=== PATIENT | male | born 1960 | race Caucasian/White ===

== ENCOUNTER 2016-07-14 14:22 | Emergency (ER) | payer BC ==
[2016-07-14 15:54] VITALS: BP 140/60
--- NOTE | 2016-07-14 16:01 | UC ---
FLU HPI - HPI Summary HPI Summary: pt presents with sudden onset of cough, malaise, fever, chills, and sore throat. Pt reports having "coughing fits" yesterday and woke this morning with sore throat, fever, malaise and myalgia today. Pt did not get flu vaccine this year. - History of Current Complaint Chief Complaint: UCGeneralIllness Stated Complaint: FLU LIKE Time Seen by Provider: 07/14/16 15:40 Hx Obtained From: Patient Onset/Duration: Sudden Onset, Lasting Days Severity Currently: Moderate Severity Initially: Mild Associated Signs & Symptoms: Positive: Fever, Myalgia, Cough, Sore Throat, Nasal Congestion - Allergy/Home Medications Allergies/Adverse Reactions: Allergies Allergy/AdvReac Type Severity Reaction Status Date / Time Cephalexin [From Keflex] Allergy Severe FACIAL Verified 07/14/16 15:43 SWELLING, SHANTELL SWELLING Penicillins Allergy Intermediate Hives Verified 07/14/16 15:43 Home Medications: Home Medications Lisinopril TAB* [Prinivil TAB*] 10 mg PO DAILY 07/14/16 [History Confirmed 07/14] Metoprolol Succinate [Toprol Xl] 25 mg PO DAILY 07/14/16 [History Confirmed ] Rosuvastatin Calcium [Crestor] 5 mg PO EVERY OTHER DAY 07/14/16 [History Confirmed 07/14/16] PMH/Surg Hx/FS Hx/Imm Hx Previously Healthy: No - see PMH Endocrine History Of: Reports: Diabetes Cardiovascular History Of: Reports: Cardiac Disorders - 4 STENTS Denies: Hypertension - Surgical History Surgical History: Yes Surgery Procedure, Year, and Place: STENT PLACEMENT--2008. 5 MORE STENTS PLACED --2017 - Family History Known Family History: Positive: Other - positive [facility] for URI - Social History Alcohol Use: Occasionally Substance Use Type: None Smoking Status (MU): Light Every Day Tobacco Smoker Type: Cigarettes Amount Used/How Often: 1/2 PPD Length of Time of Smoking/Using Tobacco: 45 YRS Have You Smoked in the Last Year: Yes Household Exposure Type: Cigarettes - Immunization History Most Recent Influenza Vaccination: NOT THIS SEASON Most Recent Tetanus Shot: 12 YRS AGO Review of Systems Constitutional: Fever, Chills, Fatigue Skin: Negative Eyes: Negative ENT: Sore Throat Respiratory: Cough Cardiovascular: Negative Gastrointestinal: Negative Genitourinary: Negative Motor: Negative Neurovascular: Negative Musculoskeletal: Myalgia Neurological: Negative Psychological: Negative All Other Systems Reviewed And Are Negative: Yes Physical Exam Triage Information Reviewed: Yes Appearance: Ill-Appearing Vital Signs: Initial Vital Signs Temp 101.7 F 07/14/16 15:36 Pulse 101 07/14/16 15:36 Resp 18 07/14/16 15:36 BP 140/60 07/14/16 15:36 Pulse Ox 96 07/14/16 15:36 Eye Exam: Normal ENT Exam: Other ENT: Positive: Nasal congestion Neck exam: Normal Respiratory Exam: Normal Cardiovascular Exam: Normal Musculoskeletal Exam: Normal Neurological Exam: Normal Psychological Exam: Normal Skin Exam: Other - very warm to touch Flu Course/Dx - Course Course Of Treatment: Influenza tests were negative. I discussed with the patient to conintue to monitor symptoms and follwo up with his PCP or return to clinic if his symptoms did not improve over the next 24-72 hours. Pt verbalized understanding and agreed to plan of care. - Differential Dx/Diagnosis Differential Diagnosis/HQI/PQRI: Bronchitis, Influenza Provider Diagnoses: viral syndrome Discharge - Discharge Plan Condition: Stable Disposition: HOME Patient Education Materials: Viral Syndrome (ED) Referrals: Norm Andrade DO [Primary Care Provider] - 1 Day (Please follow up with your PCP or return to clinic as needed. ) Additional Instructions: It is noted that your blood pressure is elevated at todays visit. Please follow up with your PCP regarding this as soon as possible.
[2016-07-14] MEDS ORDERED: Acetaminophen TAB* 325 MG PO ONE (16:18)
== END 2016-07-14 16:40 | disposition home or self-care (01) ==
LOC: UCCORT 14:22
DX: B34.9 Viral infection, unspecified (principal); Z95.5 Presence of coronary angioplasty implant and graft; Z88.1 Allergy status to other antibiotic agents; Z88.0 Allergy status to penicillin; F17.210 Nicotine dependence, cigarettes, uncomplicated
CPT/HCPCS: 87502; 99212; A9270-GY; G0463

== ENCOUNTER 2016-07-23 18:11 | Emergency (ER) | payer BC ==
[2016-07-23 18:55] VITALS: BP 136/71
--- NOTE | 2016-07-23 19:19 | UC ---
Throat Pain/Nasal Bang HPI - HPI Summary HPI Summary: Seen here 07/14/16 for fever, congestion, cough, flu-like illness. As those symptoms improved through the week, pt developed marked pain in face and L ear/ jaw. Feels it is mainly in his sinuses. Denies new fever or trouble breathing. Also is prone to swimmer's ear, concerned about this. - History of Current Complaint Chief Complaint: UCGeneralIllness Stated Complaint: SINUS Time Seen by Provider: 07/23/16 19:02 Hx Obtained From: Patient Onset/Duration: Gradual Onset, Lasting Days Severity: Moderate Cough: Productive Associated Signs & Symptoms: Negative: Fever - no new fevers - Allergies/Home Medications Allergies/Adverse Reactions: Allergies Allergy/AdvReac Type Severity Reaction Status Date / Time Cephalexin [From Keflex] Allergy Severe FACIAL Verified 07/23/16 18:54 SWELLING, SHANTELL SWELLING Penicillins Allergy Intermediate Hives Verified 07/23/16 18:54 Home Medications: Home Medications Acetaminophen TAB* [Tylenol TAB*] 650 mg PO Q4H PRN 07/23/16 [History Confirmed 07/23/16] PMH/Surg Hx/FS Hx/Imm Hx Endocrine History Of: Reports: Diabetes Cardiovascular History Of: Reports: Cardiac Disorders - 4 STENTS Denies: Hypertension - Surgical History Surgical History: Yes Surgery Procedure, Year, and Place: STENT PLACEMENT - Family History Known Family History: Positive: Other - positive [facility] for URI - Social History Lives: With Family Alcohol Use: Occasionally Substance Use Type: None Smoking Status (MU): Light Every Day Tobacco Smoker Type: Cigarettes Amount Used/How Often: 1/2 PPD Length of Time of Smoking/Using Tobacco: 45 YRS Have You Smoked in the Last Year: Yes Household Exposure Type: Cigarettes - Immunization History Most Recent Influenza Vaccination: NOT THIS SEASON Most Recent Tetanus Shot: 12 YRS AGO Review of Systems Constitutional: Negative Skin: Negative Eyes: Negative ENT: Nasal Discharge Respiratory: Cough Cardiovascular: Negative Gastrointestinal: Negative Genitourinary: Negative Motor: Negative Neurovascular: Negative Musculoskeletal: Negative Neurological: Negative Psychological: Negative All Other Systems Reviewed And Are Negative: Yes Physical Exam Triage Information Reviewed: Yes Appearance: Well-Appearing, No Pain Distress, Well-Nourished Vital Signs: Initial Vital Signs Temp 98.2 F 07/23/16 18:51 Pulse 94 07/23/16 18:51 Resp 16 07/23/16 18:51 BP 136/71 07/23/16 18:51 Pulse Ox 99 07/23/16 18:51 Vital Signs Reviewed: Yes Eye Exam: Normal Eyes: Positive: Conjunctiva Clear ENT: Positive: Hearing grossly normal, Pharynx normal, Nasal congestion, TMs normal. Negative: Tonsillar swelling, Tonsillar exudate Dental Exam: Normal Neck exam: Normal Neck: Positive: Supple, Nontender, No Lymphadenopathy Respiratory Exam: Normal Respiratory: Positive: Chest non-tender, Lungs clear, Normal breath sounds, No respiratory distress, No accessory muscle use Cardiovascular Exam: Normal Cardiovascular: Positive: RRR, No Murmur Musculoskeletal Exam: Normal Neurological Exam: Normal Neurological: Positive: Alert Psychological Exam: Normal Skin Exam: Normal Throat Pain/Nasal Course/Dx - Differential Dx/Diagnosis Provider Diagnoses: acute rhinosinusitis Discharge - Discharge Plan Condition: Stable Disposition: HOME Prescriptions: DOXYcycline CAP(*) [DOXYcycline 100MG CAP(*)] 100 mg PO BID #14 cap Patient Education Materials: Rhinosinusitis (ED) Referrals: Norm Andrade DO [Primary Care Provider] - Additional Instructions: Keep using steam and saline. If you have any significant worsening, or if you fail to improve after 4 days, please return here or see your primary care provider.
== END 2016-07-23 19:22 | disposition home or self-care (01) ==
LOC: UCCORT 18:11
DX: J01.90 Acute sinusitis, unspecified (principal); Z88.1 Allergy status to other antibiotic agents; Z88.0 Allergy status to penicillin; E11.9 Type 2 diabetes mellitus without complications; F17.210 Nicotine dependence, cigarettes, uncomplicated
CPT/HCPCS: 99212; G0463

== ENCOUNTER 2017-04-22 15:11 | Emergency (ER) | payer BC ==
--- NOTE | 2017-04-22 15:40 | UC ---
Throat Pain/Nasal Bang HPI - HPI Summary HPI Summary: 56 year old male presents with complains of sinus congestion. - History of Current Complaint Stated Complaint: SINUSES Time Seen by Provider: 04/22/17 15:39 Hx Obtained From: Patient Onset/Duration: Sudden Onset, Lasting Days Severity: Moderate Pain Scale Used: 0-10 Numeric - 5 Cough: Nonproductive Associated Signs & Symptoms: Positive: Negative - Allergies/Home Medications Allergies/Adverse Reactions: Allergies Allergy/AdvReac Type Severity Reaction Status Date / Time Cephalexin [From Keflex] Allergy Severe FACIAL Verified 04/22/17 16:00 SWELLING, SHANTELL SWELLING Penicillins Allergy Intermediate Hives Verified 04/22/17 16:00 Home Medications: Home Medications B-Complex Vitamins [Vitamin B Complex] 1 tab PO DAILY 04/22/17 [History Confirmed 04/22/17] Melatonin 10 mg PO BEDTIME 04/22/17 [History Confirmed 04/22/17] Multiple Vitamin [Multivitamins] 1 cap PO DAILY 04/22/17 [History Confirmed 06/08] PMH/Surg Hx/FS Hx/Imm Hx Previously Healthy: Yes - Surgical History Surgical History: Yes Surgery Procedure, Year, and Place: STENT PLACEMENT - Family History Known Family History: Positive: Other - positive [facility] for URI - Social History Alcohol Use: Occasionally Substance Use Type: None Smoking Status (MU): Light Every Day Tobacco Smoker Type: Cigarettes Amount Used/How Often: 1/2 PPD Length of Time of Smoking/Using Tobacco: 45 YRS Have You Smoked in the Last Year: Yes Household Exposure Type: Cigarettes - Immunization History Most Recent Influenza Vaccination: NOT THIS SEASON Most Recent Tetanus Shot: 12 YRS AGO Review of Systems Constitutional: Negative Skin: Negative Eyes: Negative ENT: Sinus Congestion, Sinus Pain/Tenderness Respiratory: Negative Cardiovascular: Negative Gastrointestinal: Negative Genitourinary: Negative Motor: Negative Neurovascular: Negative Musculoskeletal: Negative Neurological: Negative Psychological: Negative All Other Systems Reviewed And Are Negative: Yes Physical Exam Triage Information Reviewed: Yes Vital Signs Reviewed: Yes Eye Exam: Normal ENT: Positive: Nasal congestion, Nasal drainage, Sinus tenderness Dental Exam: Normal Neck exam: Normal Neck: Positive: 1 Respiratory Exam: Normal Cardiovascular Exam: Normal Abdominal Exam: Normal Musculoskeletal Exam: Normal Neurological Exam: Normal Psychological Exam: Normal Skin Exam: Normal Throat Pain/Nasal Course/Dx - Differential Dx/Diagnosis Provider Diagnoses: sinusitis Discharge - Discharge Plan Condition: Stable Disposition: HOME Prescriptions: Azithromycin TAB* [Zithromax TAB (Z-HANK) 250 mg #6 tabs] 2 tab PO .TODAY, THEN 1 DAILY #1 hank Guaifenesin-Codeine [Cheratussin AC] 1 teasp PO BEDTIME PRN #120 ml MDD 5 ml PRN Reason: Cough LoraTADine TAB(NF) [Claritin 10 MG TAB(NF)] 10 mg PO DAILY #30 tab Methylprednisolone [Medrol Dosepak 4 MG*] 4 mg PO .SEE HANK INSTRUCTION #21 tab Patient Education Materials: Sinusitis (ED) Referrals: Norm Andrade DO [Primary Care Provider] -
[2017-04-22 16:02] VITALS: BP 121/69
== END 2017-04-22 16:12 | disposition home or self-care (01) ==
LOC: UCCORT 15:11
DX: J32.9 Chronic sinusitis, unspecified (principal); F17.210 Nicotine dependence, cigarettes, uncomplicated; Z88.1 Allergy status to other antibiotic agents; Z88.0 Allergy status to penicillin
CPT/HCPCS: 99212; G0463

== ENCOUNTER 2017-10-11 07:18 | Emergency (ER) | payer BC ==
[2017-10-11 07:34] VITALS: BP 119/65
--- NOTE | 2017-10-11 07:50 | UC ---
General HPI - HPI Summary HPI Summary: 56 year old smoker presents with lymph node enlargement for a couple days . Painful/swollen gland on RIGHT side and painful to swallow last couple days. [place] feverish yesterday. Nothing taken for pain. No other sxs. no dysphagia. no choking on food. no weight loss. [ End ] - History of Current Complaint Chief Complaint: UCGeneralIllness Stated Complaint: RIGHT SIDE NECK/GLANDS Time Seen by Provider: 10/11/17 07:40 Hx Obtained From: Patient Onset/Duration: Sudden Onset Onset Severity: Mild Current Severity: Moderate Pain Intensity: 5 - Allergy/Home Medications Allergies/Adverse Reactions: Allergies Allergy/AdvReac Type Severity Reaction Status Date / Time cephalexin [From Keflex] Allergy Severe Swelling Verified 10/11/17 07:26 Of Face,Lips,& Throat Penicillins Allergy Intermediate Hives Verified 10/11/17 07:26 Home Medications: Home Medications Melatonin 1 tab BEDTIME 10/11/17 [History Confirmed 10/11/17] PMH/Surg Hx/FS Hx/Imm Hx Previously Healthy: Yes - Surgical History Surgical History: Yes Surgery Procedure, Year, and Place: STENT PLACEMENT - Family History Known Family History: Positive: Other - positive [facility] for URI and mom with brain cancer - Social History Alcohol Use: Rare Substance Use Type: None Smoking Status (MU): Light Every Day Tobacco Smoker Type: Cigarettes Amount Used/How Often: 1/2 PPD Length of Time of Smoking/Using Tobacco: 45 YRS Have You Smoked in the Last Year: Yes Household Exposure Type: Cigarettes - Immunization History Most Recent Influenza Vaccination: NOT THIS SEASON Most Recent Tetanus Shot: 2017 Review of Systems Constitutional: Fever, Fatigue ENT: Sore Throat, Ear Ache, Nasal Discharge Is Patient Immunocompromised?: No All Other Systems Reviewed And Are Negative: Yes Physical Exam Triage Information Reviewed: Yes Appearance: Well-Appearing, No Pain Distress, Well-Nourished Vital Signs: Initial Vital Signs Temp 97.9 F 10/11/17 07:28 Pulse 85 10/11/17 07:28 Resp 16 10/11/17 07:28 BP 119/65 10/11/17 07:28 Pulse Ox 99 10/11/17 07:28 Vital Signs Reviewed: Yes Eye Exam: Normal ENT: Positive: Pharyngeal erythema, Nasal congestion, Nasal drainage, TM bulging - right, TM dull - right. Negative: Tonsillar swelling, Tonsillar exudate Dental Exam: Normal Respiratory Exam: Normal Cardiovascular Exam: Normal Musculoskeletal Exam: Normal Neurological Exam: Normal Psychological Exam: Normal Skin Exam: Normal Course/Dx - Course Course Of Treatment: stop smoking. treat at this time, start claritin, push PO fluids, start antibiotics to eradicate potential bacterial infect, due to smoking increased potential for cancer -- advise to return here or PCP next week if sx not resolved and consider imaging he is aware and agree to plan and aware of SE of doxy - Differential Dx - Multi-Symptom Provider Diagnoses: Right AOM. Right anterior cervical lymphadnopathy. URI Discharge - Sign-Out/Discharge Documenting (check all that apply): Discharge/Admit/Transfer - Discharge Plan Condition: Good Disposition: HOME Prescriptions: Doxycycline Hyclate 100 mg PO BID #20 tablet Patient Education Materials: Lymphadenopathy (ED), How to Stop Smoking (ED) Referrals: Norm Andrade DO [Primary Care Provider] - 5 Days Additional Instructions: As we discussed if your neck / lymph nodes are still a concern in the next 1-2 weeks return for follow up or follow up with your PCP for further work up - Billing Disposition and Condition Condition: GOOD Disposition: Home
== END 2017-10-11 07:59 | disposition home or self-care (01) ==
LOC: UCCORT 07:18
DX: H66.91 Otitis media, unspecified, right ear (principal); R59.1 Generalized enlarged lymph nodes; J06.9 Acute upper respiratory infection, unspecified; F17.210 Nicotine dependence, cigarettes, uncomplicated; Z88.1 Allergy status to other antibiotic agents; Z88.0 Allergy status to penicillin; Z96.81 Presence of artificial skin
CPT/HCPCS: 99212; G0463

== ENCOUNTER 2019-03-15 15:06 | Emergency (ER) | payer BC ==
[2019-03-15 15:55] VITALS: BP 137/74
--- NOTE | 2019-03-15 16:05 | UC ---
Throat Pain/Nasal Bang HPI - HPI Summary HPI Summary: Pt presents with c/o nasal congestion, sinus pressure and pain X 4 days. Pt states he has frequency sinus infections and thinks he has one now. - History of Current Complaint Chief Complaint: UCGeneralIllness Stated Complaint: SINUS COMPLAINT Time Seen by Provider: 03/15/19 15:49 Hx Obtained From: Patient Onset/Duration: Gradual Onset, Lasting Days, Still Present, Worse Since - onset Severity: Moderate Pain Intensity: 6 Associated Signs & Symptoms: Positive: Sinus Discomfort, Nasal Discharge - Epiglottits Risk Factors Epiglottis Risk Factors: Negative - Allergies/Home Medications Allergies/Adverse Reactions: Allergies Allergy/AdvReac Type Severity Reaction Status Date / Time cephalexin [From Keflex] Allergy Severe Swelling Verified 03/15/19 15:55 Of Face,Lips,& Throat Penicillins Allergy Intermediate Hives Verified 03/15/19 15:55 PMH/Surg Hx/FS Hx/Imm Hx Previously Healthy: Yes - Surgical History Surgical History: Yes Surgery Procedure, Year, and Place: STENT PLACEMENT - Family History Known Family History: Positive: Cardiac Disease, Other - positive [facility] for URI and mom with brain cancer - Social History Occupation: Employed Full-time Lives: With Family Alcohol Use: Occasionally Substance Use Type: None Smoking Status (MU): Light Every Day Tobacco Smoker Type: Cigarettes Amount Used/How Often: 1/2 PPD Length of Time of Smoking/Using Tobacco: 45 YRS Have You Smoked in the Last Year: Yes Household Exposure Type: Cigarettes - Immunization History Most Recent Influenza Vaccination: NOT THIS SEASON Most Recent Tetanus Shot: 2017 Vaccination Up to Date: Yes Review of Systems All Other Systems Reviewed And Are Negative: Yes Constitutional: Positive: Negative Skin: Positive: Negative Eyes: Positive: Negative ENT: Positive: Nasal Discharge, Sinus Congestion, Sinus Pain/Tenderness Respiratory: Positive: Negative Cardiovascular: Positive: Negative Gastrointestinal: Positive: Negative Genitourinary: Positive: Negative Motor: Positive: Negative Neurovascular: Positive: Negative Musculoskeletal: Positive: Negative Neurological: Positive: Negative Psychological: Positive: Negative Is Patient Immunocompromised?: No Physical Exam Triage Information Reviewed: Yes Appearance: Well-Appearing Vital Signs: Initial Vital Signs Temp 97.6 F 03/15/19 15:52 Pulse 86 03/15/19 15:52 Resp 15 03/15/19 15:52 BP 137/74 03/15/19 15:52 Pulse Ox 99 11/25/19 15:52 Vital Signs Reviewed: Yes Eye Exam: Normal ENT: Positive: Nasal congestion, Sinus tenderness Dental Exam: Normal Neck exam: Normal Respiratory Exam: Normal Cardiovascular Exam: Normal Musculoskeletal Exam: Normal Neurological Exam: Normal Psychological Exam: Normal Skin Exam: Normal Throat Pain/Nasal Course/Dx - Differential Dx/Diagnosis Differential Diagnosis/HQI/PQRI: Influenza, Sinusitis, URI Provider Diagnosis: Sinusitis Discharge ED - Sign-Out/Discharge Documenting (check all that apply): Patient Departure All imaging exams completed and their final reports reviewed: No Studies - Discharge Plan Condition: Stable Disposition: HOME Prescriptions: Azithromycin TAB* [Zithromax TAB (Z-HANK) 250 mg #6 tabs] 2 tab PO .TODAY, THEN 1 DAILY #1 hank Patient Education Materials: Sinusitis (ED) Referrals: Rachael Mosher PA [Primary Care Provider] - If Needed Additional Instructions: Please follow up with your PCP as needed. - Billing Disposition and Condition Condition: STABLE Disposition: Home
== END 2019-03-15 16:15 | disposition home or self-care (01) ==
LOC: UCCORT 15:06
DX: J32.9 Chronic sinusitis, unspecified (principal); F17.210 Nicotine dependence, cigarettes, uncomplicated; Z95.5 Presence of coronary angioplasty implant and graft; Z88.0 Allergy status to penicillin; Z88.1 Allergy status to other antibiotic agents
CPT/HCPCS: 99212; G0463